=== PATIENT | male | born 1980 | race Caucasian/White ===

== ENCOUNTER 2019-01-06 10:19 | Emergency (ER) | payer BC ==
--- NOTE | 2019-01-06 11:30 | EDM.PDOC ---
ED HPI GENERAL MEDICAL PROBLEM - General Chief Complaint: Lower Extremity Injury/Pain Stated Complaint: LT LEG Time Seen by Provider: 01/06/19 10:32 Source of Information: Reports: Patient, Family - History of Present Illness INITIAL COMMENTS - FREE TEXT/NARRATIVE: Pt. states that he was carrying something heavy down stairs when he heard a "pop " in his L knee. Pt. states that he has had previous knee surgery (ACL repair) to the joint in the past. Pt. states that he did not fall. He denies any actual trauma to the area. Pt. denies any numbness/tingling in the extremity. Reports significant swelling to the joint. Onset: Today Location: Reports: Lower Extremity, Left Quality: Reports: Ache Left Knee Pain Score (Numeric/FACES): 3 - Related Data Allergies Allergy/AdvReac Type Severity Reaction Status Date / Time No Known Allergies Allergy Verified 01/06/19 10:49 Home Meds: Home Meds Cyanocobalamin (Vitamin B-12) [Vitamin B-12] 1,000 mcg PO DAILY 01/06/19 [ History] Glucosamine Sulfate 2KCl [Glucosamine] 1,000 mg PO DAILY 01/06/19 [History] Past Medical History - Past Surgical History Musculoskeletal Surgical History: Reports: Other (See Below) Other Musculoskeletal Surgeries/Procedures:: has had 2 surgeries, has pins, patient does not know exact surgery performed Social & Family History - Family History Family Medical History: Noncontributory - Tobacco Use Smoking Status *Q: Former Smoker Years of Tobacco use: 4 Packs/Tins Daily: 0.2 Used Tobacco, but Quit: Yes Month/Year Tobacco Last Used: 2001 Second Hand Smoke Exposure: No - Caffeine Use Caffeine Use: Reports: None - Recreational Drug Use Recreational Drug Use: No Review of Systems - Review of Systems Review Of Systems: See Below Constitutional: Reports: No Symptoms Eyes: Reports: No Symptoms Ears: Reports: No Symptoms Nose: Reports: No Symptoms Mouth/Throat: Reports: No Symptoms Respiratory: Reports: No Symptoms Cardiovascular: Reports: No Symptoms GI/Abdominal: Reports: No Symptoms Genitourinary: Reports: No Symptoms Musculoskeletal: Reports: Joint Pain (L knee), Joint Swelling Skin: Reports: No Symptoms Neurological: Reports: No Symptoms Psychiatric: Reports: No Symptoms ED EXAM, GENERAL - Physical Exam Exam: See Below Exam Limited By: No Limitations General Appearance: Alert, WD/WN, No Apparent Distress Extremities: Joint Swelling, Limited Range of Motion, Other (swelling and pain to L knee, no crepitus noted.) Course - Vital Signs Last Recorded V/S: Last Vital Signs Temp 36.8 C 01/06/19 10:32 Pulse 59 L 01/06/19 10:32 Resp 18 01/06/19 10:32 BP 110/59 L 01/06/19 10:32 Pulse Ox 99 01/06/19 10:32 - Radiology Interpretation Free Text/Narrative:: Radiographs of L knee negative for acute fracture or dislocation. There was moderate joint effusion. Departure - Departure Time of Disposition: 12:09 Disposition: Home, Self-Care 01 Clinical Impression: Sprain of knee - Discharge Information Instructions: RICE Therapy for Routine Care of Injuries, [id number], Elastic Bandage and RICE, Knee Sprain, Adult Referrals: PCP,None [Primary Care Provider] - Forms: ED Department Discharge Additional Instructions: Home to rest. Absolutely no lifting today. Rest, ice and elevate knee. Use compression bandage. If still having troubles in 10-14 days follow-up for further workup/MRI of the joint. - Assessment/Plan Plan: Home to rest. Absolutely no lifting today. Rest, ice and elevate knee. Use compression bandage. If still having troubles in 10-14 days follow-up for further workup/MRI of the joint.
--- NOTE | 2019-01-06 11:37 | CR ---
[id number] RAD/RAD Knee Left 3V EXAM: 3 VIEWS LEFT KNEE. INDICATION: FELT "POP" IN LEFT KNEE. COMPARISON: None. DISCUSSION: No fracture, dislocation or other acute osseous abnormality. Postsurgical changes of the distal left femur. Moderate left knee joint effusion. Enthesopathic change at the quadriceps insertion. IMPRESSION: 1. No definite acute osseous abnormalities. Moderate left knee joint effusion. Robert Cortez DO 01/06/19 1136 Thank you for allowing us to participate in the care of your patient.
== END 2019-01-06 11:42 | disposition home or self-care (01) ==
LOC: VM.ED 10:19 → EDBD 10:19 → VM.ED 11:42
DX: S83.92XA Sprain of unspecified site of left knee, initial encounter (principal); Z87.891 Personal history of nicotine dependence; Z79.899 Other long term (current) drug therapy; W10.9XXA Fall (on) (from) unspecified stairs and steps, initial encounter
CPT/HCPCS: 73562-LT; 99283-25